=== PATIENT | male | born 1960 | race Caucasian/White ===

== ENCOUNTER 2017-07-13 20:42 | Emergency (ER) | payer MEDICAID ==
[~2017-07-13] VITALS: Ht 177.8 cm; Wt 63.5 kg
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
[2017-07-13 21:30] VITALS: BP 132/86
[2017-07-13 23:30] VITALS: BP 128/79
[2017-07-14 01:30] VITALS: BP 122/77
[2017-07-14 03:30] VITALS: BP 118/74
[2017-07-14 04:36] VITALS: BP 118/74
== END 2017-07-14 04:30 | disposition home or self-care (01) ==
LOC: EDBD 20:42 → EMR 21:22
DX: F10.129 Alcohol abuse with intoxication, unspecified (principal); G89.29 Other chronic pain; M54.9 Dorsalgia, unspecified; Z88.5 Allergy status to narcotic agent
CPT/HCPCS: 99284

== ENCOUNTER 2017-07-24 03:08 | Emergency (ER) | payer MEDICAID ==
[~2017-07-24] VITALS: Ht 167.6 cm; Wt 65.8 kg
[2017-07-24] MEDS ORDERED: PEPCID20 MG ORAL (03:31)
[2017-07-24] MEDS ORDERED: KEPPRA500 M4 ORAL (03:31)
[2017-07-24] MEDS ORDERED: VITAMIN B-1100 MG ORAL (03:31)
[2017-07-24] MEDS ORDERED: HYDRALAZINE HCL25 M1 ORAL (03:31)
[2017-07-24] MEDS ORDERED: FOLIC ACID1 MG ORAL (03:31)
[2017-07-24] MEDS ORDERED: M.V.I. ADULT10 ML IV (03:32)
[2017-07-24] MEDS ORDERED: LORazepam 1mg tab ORAL ONE (03:45)
[2017-07-24] MEDS ORDERED: HYDROCORTISON28.4 G5 TOPIC (04:04)
[2017-07-24] MEDS ORDERED: ATIVAN1 MG ORAL (04:04)
[2017-07-24 04:36] VITALS: BP 134/89
--- NOTE | 2017-07-24 05:37 | Emergency Room Report ---
History of Present Illness General Chief Complaint: General Complaint Source: Patient Present Illness HPI Patient 56-year-old male brought in by self after increased skin rash. Patient recently been discharged from the hospital. He was noted to have itchy rash to his waist area. The patient reports having a prior history of seizure disorder. He states he drinks alcohol heavily but had not been drinking for several days. The patient recently hospitalized at [facility]. Allergies: Coded Allergies: MORPHINE (Verified Allergy, Unknown, 04/09/17) Patient History Past Medical History: see triage record Reviewed Nursing Documentation: PMH: Agreed; PSxH: Agreed Nursing Documentation-PMH Hx Diabetes: Yes Review of Systems All Other Systems: negative except mentioned in HPI Physical Exam Vital Signs Date Time Temp Pulse Resp B/P (MAP) Pulse Ox O2 Delivery O2 Flow Rate FiO2 07/24/17 03:15 97.7 71 18 157/106 97 Room Air 97.7 Sp02 EP Interpretation: reviewed, normal General Appearance: normal inspection, well appearing, no apparent distress, alert, GCS 15 Head: atraumatic ENT: normal ENT inspection, hearing grossly normal, normal voice Neck: normal inspection, full range of motion, supple, no bony tend Respiratory: normal inspection, lungs clear, normal breath sounds, no respiratory distress, no retraction, no wheezing Cardiovascular #1: regular rate, rhythm, no edema Gastrointestinal: normal inspection, normal bowel sounds, non tender, soft, no guarding, no hernia Genitourinary: no CVA tenderness Musculoskeletal: normal inspection, back normal, normal range of motion Neurologic: normal inspection, alert, oriented x3, responsive, pick up worker III-XII nml as tested, speech normal Psychiatric: normal inspection, judgement/insight normal, mood/affect normal Skin: no rash, other - rash to waist, extremities Medical Decision Making Diagnostic Impression: Primary Impression: Alcohol abuse Additional Impression: Rash in adult ER Course Patient presented for skin rash. Differential diagnosis included was not limited to eczema, abscess, scabies, contact dermatitis among others. Patient has a benign exam and does not appear to require any further imaging or laboratory testing at this time. The patient was given oral Ativan. Patient is given prescription for topical medications as well as further Ativan. The patient is advised to follow up with primary care doctor in 1-2 days. Patient is advised to return if any worsening condition or if any changes in status that are concerning. This report is dictated with [employer] party plan dealer software which may occasionally lead to discrepancies related to use of this software. Last Vital Signs Date Time Temp Pulse Resp B/P (MAP) Pulse Ox O2 Delivery O2 Flow Rate FiO2 07/24/17 04:36 134/89 07/24/17 04:36 97.7 18 97 Room Air 97.7 07/24/17 03:15 71 Status: improved Disposition: HOME, SELF-CARE Condition: Stable Scripts Lorazepam* (ATIVAN*) 1 Mg Tablet 1 MG ORAL THREE TIMES A DAY, #10 TAB Prov: Josh Radford 07/24/17 Hydrocortisone 1% cream (Hydrocortisone 1% cream) Y Cr 28.4 GM TOPIC DAILY, #30 GM Prov: Josh Radford 07/24/17 Referrals: [facility],REFERRING (PCP) Patient Instructions: Alcohol Abuse and Nutrition, Pruritus Josh Radford Jul 24, 2017 05:37
== END 2017-07-24 04:37 | disposition home or self-care (01) ==
LOC: EMR 03:37
DX: F10.10 Alcohol abuse, uncomplicated (principal); R21 Rash and other nonspecific skin eruption; E11.9 Type 2 diabetes mellitus without complications; Z88.5 Allergy status to narcotic agent
CPT/HCPCS: 99284

== ENCOUNTER 2017-08-11 19:13 | Emergency (ER) | payer MEDICAID ==
[~2017-08-11] VITALS: Ht 167.6 cm; Wt 72.6 kg
[~2017-08-11 19:13] MED LIST: ATIVAN1 MG ORAL; FOLIC ACID1 MG ORAL; HYDRALAZINE HCL25 M1 ORAL; HYDROCORTISON28.4 G5 TOPIC; KEPPRA500 M4 ORAL; M.V.I. ADULT10 ML IV; PEPCID20 MG ORAL; VITAMIN B-1100 MG ORAL
[2017-08-11 19:18] VITALS: BP 121/85
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
[2017-08-11 21:02] VITALS: BP 121/85
== END 2017-08-11 21:10 | disposition home or self-care (01) ==
LOC: EDBD 19:13 → EMR 19:45
DX: F10.10 Alcohol abuse, uncomplicated (principal); E11.9 Type 2 diabetes mellitus without complications
CPT/HCPCS: 99282

== ENCOUNTER 2017-08-26 14:39 | Emergency (ER) | payer MEDICAID ==
[~2017-08-26] VITALS: Ht 172.7 cm; Wt 71.7 kg
--- NOTE | 2017-08-26 15:13 | Emergency Room Report ---
History of Present Illness General Chief Complaint: General Complaint Source: Patient Present Illness HPI 56-year-old male presents to the emergency department complaining of pain in the left knee times almost 3 weeks. Patient reports status post musculoskeletal injury which she sustained fractures of the leg and several lacerations. He rates his pain as 5 out of 10 in severity. Denies fevers or chills. Patient reports that he's been drinking alcohol because that is the only way to deal with the pain. He denies new trauma or fall. Patient reports it is difficult for him to walk or take care of himself due to having his entire left leg immobilized. Denies numbness tingling or loss of sensation to the affected extremity. Denies CP, Palpitations, LOC, AMS, dizziness, Changes in Vision, claudication, SOB, paresthesias, or a sudden severe headache. Allergies: Coded Allergies: MORPHINE (Verified Allergy, Unknown, 04/09/17) Patient History Past Medical History: see triage record Past Surgical History: none Pertinent Family History: none Social History: Reports: alcohol use, drug use - heroin Immunizations: UTD Reviewed Nursing Documentation: PMH: Agreed; PSxH: Agreed Nursing Documentation-PMH Hx Diabetes: Yes Review of Systems All Other Systems: negative except mentioned in HPI Physical Exam Vital Signs Date Time Temp Pulse Resp B/P (MAP) Pulse Ox O2 Delivery O2 Flow Rate FiO2 08/26/17 14:37 97.8 80 16 116/60 100 Room Air 97.9 Sp02 EP Interpretation: reviewed, normal General Appearance: no apparent distress, alert, GCS 15, non-toxic, thin, other - Disheveled Head: normocephalic, atraumatic Eyes: bilateral eye normal inspection, bilateral eye PERRL ENT: hearing grossly normal, normal voice Neck: full range of motion, no bony tend Respiratory: chest non-tender, lungs clear, normal breath sounds, no wheezing, speaking full sentences Cardiovascular #1: regular rate, rhythm, normal capillary refill, other Gastrointestinal: non tender, soft Musculoskeletal: back normal, gait/station normal, normal range of motion, tender - TTP to the anterior left knee, mild swelling noted, two lacerations that have been previously closed by laurent, no d/c, increased temperature to palpation. Neurologic: alert, oriented x3, responsive, motor strength/tone normal, sensory intact, speech normal, grossly normal Psychiatric: judgement/insight normal Skin: normal color, no rash, warm/dry Medical Decision Making PA Attestation Dr. sanon is my supervising Physician whom patient management has been discussed with. Diagnostic Impression: Primary Impression: Weakness of extremity Additional Impressions: Inability to ambulate due to knee Failure to thrive in adult ER Course 56-year-old male presents to the emergency department complaining of pain in the left knee times almost 3 weeks. Patient reports status post musculoskeletal injury which she sustained fractures of the leg and several lacerations. He rates his pain as 5 out of 10 in severity. Denies fevers or chills. Patient reports that he's been drinking alcohol because that is the only way to deal with the pain. He denies new trauma or fall. Patient reports it is difficult for him to walk or take care of himself due to having his entire left leg immobilized. Denies numbness tingling or loss of sensation to the affected extremity. Denies CP, Palpitations, LOC, AMS, dizziness, Changes in Vision, claudication, SOB, paresthesias, or a sudden severe headache. Ddx considered but are not limited to Cellulitis, Compromised circulation, Septic Joint, Inability to care for himself, DVT, psychiatric episode just to name a few. Vital signs: are WNL, pt. is afebrile H&PE are most consistent with Healing lacerations of the left knee, and immobilized left leg fracture- no evidence of compartment syndrome, decreased circulation or DVT. No evidence of acute infection. ORDERS: -CBC: some anemia -CMP: unremarkable -Serum ETOH: pending -Salicylate and Acetaminophen levels : pending -UDS: positive for Benzo's and THC. DISPOSITION: at this time pt. will be admitted and transferred to [facility] for Unsteady Gait, inability to care for himself and weakness. Dr. Mix agreed to admit this patient and continue patient care management. Labs Test 08/26/17 20:30 White Blood Count 5.1 K/UL (4.8-10.8) Red Blood Count 4.12 M/UL (4.70-6.10) Hemoglobin 12.0 G/DL (14.2-18.0) Hematocrit 37.6 % (42.0-52.0) Mean Corpuscular Volume 91 FL (80-99) Mean Corpuscular Hemoglobin 29.2 PG (27.0-31.0) Mean Corpuscular Hemoglobin Concent 32.0 G/DL (32.0-36.0) Red Cell Distribution Width 16.2 % (11.6-14.8) Platelet Count 117 K/UL (150-450) Mean Platelet Volume 11.2 FL (6.5-10.1) Neutrophils (%) (Auto) 45.4 % (45.0-75.0) Lymphocytes (%) (Auto) 37.5 % (20.0-45.0) Monocytes (%) (Auto) 10.1 % (1.0-10.0) Eosinophils (%) (Auto) 5.1 % (0.0-3.0) Basophils (%) (Auto) 1.9 % (0.0-2.0) Last Vital Signs Date Time Temp Pulse Resp B/P (MAP) Pulse Ox O2 Delivery O2 Flow Rate FiO2 08/26/17 14:37 97.8 80 16 116/60 100 Room Air 97.9 Disposition: ADMITTED INPATIENT Condition: Serious Elda Quiñonez August 26, 2017 15:13
[2017-08-26 16:26] VITALS: BP 116/60
[2017-08-26 19:55] VITALS: BP 130/76
[2017-08-26 20:51] LABS: BASOPHILS % (AUTO) 1.9 % (0.0-2.0); EOSINOPHILS % (AUTO) 5.1 % (0.0-3.0); HEMATOCRIT 37.6 % (42.0-52.0); LYMPHOCYTES % (AUTO) 37.5 % (20.0-45.0); MEAN CORPUSCULAR VOLUME 91 FL (80-99); MONOCYTES % (AUTO) 10.1 % (1.0-10.0); NEUTROPHILS % (AUTO) 45.4 % (45.0-75.0); PLATELET COUNT 117 K/UL (150-450); RED BLOOD COUNT 4.12 M/UL (4.70-6.10); RED CELL DISTRIBUTION WIDTH 16.2 % (11.6-14.8); WHITE BLOOD COUNT 5.1 K/UL (4.8-10.8)
[2017-08-26 21:35] LABS: ANION GAP 9 mmol/L (5-15); BLOOD UREA NITROGEN 5 mg/dL (7-18); CALCIUM 8.3 MG/DL (8.5-10.1); CARBON DIOXIDE 27 MMOL/L (21-32); CHLORIDE 104 MMOL/L (98-107); CREATININE 0.7 MG/DL (0.55-1.30); POTASSIUM 3.8 MMOL/L (3.5-5.1); SODIUM 140 MMOL/L (136-145)
[2017-08-26 21:39] LABS: ALANINE AMINOTRANSFERASE 61 U/L (12-78); ALBUMIN 2.9 G/DL (3.4-5.0); ALBUMIN/GLOBULIN RATIO 0.6 (1.0-2.7); ALKALINE PHOSPHATASE 115 U/L (46-116); ASPARTATE AMINO TRANSFERASE 60 U/L (15-37); BILIRUBIN,TOTAL 0.5 MG/DL (0.2-1.0)
[2017-08-26 21:45] VITALS: BP 147/83
[2017-08-26 21:46] VITALS: BP 130/76
== END 2017-08-26 21:47 | disposition other institution (70) ==
LOC: EDBD 14:39 → EMR 15:08
DX: R53.1 Weakness (principal); M25.562 Pain in left knee; R62.7 Adult failure to thrive; E11.9 Type 2 diabetes mellitus without complications; Z88.5 Allergy status to narcotic agent
CPT/HCPCS: 36415; 80053; 80307; 80329; 82962; 85025; 99285

== ENCOUNTER 2017-09-06 00:24 | Emergency (ER) | payer MEDICAID ==
[~2017-09-06] VITALS: Ht 167.6 cm; Wt 59.0 kg
[2017-09-06 00:24] VITALS: BP 135/94
[2017-09-06 04:37] VITALS: BP 96/57
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
[2017-09-06 11:27] VITALS: BP 112/67
[2017-09-06 11:50] VITALS: BP 112/67
== END 2017-09-06 11:56 | disposition home or self-care (01) ==
LOC: EDBD 00:24 → EMR 00:40
DX: F10.129 Alcohol abuse with intoxication, unspecified (principal); M79.605 Pain in left leg; Z48.02 Encounter for removal of sutures; E11.9 Type 2 diabetes mellitus without complications; B20 Human immunodeficiency virus [HIV] disease; Z86.19 Personal history of other infectious and parasitic diseases; Z88.6 Allergy status to analgesic agent
CPT/HCPCS: 82962; 99283

== ENCOUNTER 2017-10-25 20:08 | Emergency (ER) | payer MEDICAID ==
[~2017-10-25] VITALS: Ht 167.6 cm; Wt 72.6 kg
[2017-10-25 20:10] VITALS: BP 127/84
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
[2017-10-25] MEDS ORDERED: NEXAFED30 MG ORAL (22:18)
[2017-10-25] MEDS ORDERED: TYLENOL EXTRA500 MG ORAL (22:18)
[2017-10-25 22:40] VITALS: BP 123/84
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
== END 2017-10-25 22:40 | disposition home or self-care (01) ==
LOC: EDBD 20:08 → EMR 20:30
DX: S02.2XXA Fracture of nasal bones, initial encounter for closed fracture (principal); Y04.2XXA Assault by strike against or bumped into by another person, initial encounter; Y92.9 Unspecified place or not applicable; I10 Essential (primary) hypertension; E11.9 Type 2 diabetes mellitus without complications; Z88.5 Allergy status to narcotic agent; J32.0 Chronic maxillary sinusitis; G93.89 Other specified disorders of brain
CPT/HCPCS: 70450; 70486; 99284

== ENCOUNTER 2018-04-11 14:08 | Inpatient (IN) | payer MEDICAID ==
[~2018-04-11] VITALS: Ht 172.7 cm; Wt 58.6 kg
[~2018-04-11 14:08] MED LIST changes: +NEXAFED30 MG ORAL; +TYLENOL EXTRA500 MG ORAL; +UNOBMED
--- NOTE | 2018-04-11 14:10 | NUR ---
ED Nurse Note: Pt BIBA due to seizures. Pt brought in very agitated and restless. While attaching pt to monitor, pt had an active seizure that lasted for 30 secs. Pt is on 5L of oxygen via mask due to desat. Pt unable to state his name.
[2018-04-11 14:11] VITALS: BP 184/116
--- NOTE | 2018-04-11 14:15 | NUR ---
ED Nurse Note: Pt noted to smell like alcohol and blood coming out of mouth after seizure.
[2018-04-11] MEDS ORDERED: LORazepam Inj 2mg/ml 1ml IV ONE (14:45)
--- NOTE | 2018-04-11 15:07 | Emergency Room Report ---
History of Present Illness General Chief Complaint: Seizure Source: Patient, EMS Present Illness HPI Patient is a 57-year-old male brought in by EMS for possible seizure activity. Patient was noted to have unknown past medical history. History is markedly limited by patient's mental status. Allergies: Coded Allergies: MORPHINE (Verified Allergy, Unknown, 04/09/17) Patient History Past Medical History: see triage record Reviewed Nursing Documentation: PMH: Agreed; PSxH: Agreed Nursing Documentation-PMH Past Medical History: Deferred Review of Systems All Other Systems: limited - by poor historian Physical Exam Vital Signs Date Time Temp Pulse Resp B/P (MAP) Pulse Ox O2 Delivery O2 Flow Rate FiO2 04/11/18 13:59 115 04/11/18 14:11 24 Simple Mask 5.0 100 04/11/18 14:11 98.0 184/116 100 General Appearance: alert, mild distress, Chronically Ill, Postictal ENT: hearing grossly normal Neck: limited range of motion Respiratory: wheezing Cardiovascular #1: tachycardia Gastrointestinal: normal bowel sounds, non tender, soft Musculoskeletal: swelling Neurologic: alert, other - confused Psychiatric: anxious - tremuloous Skin: abrasions - to extremities Medical Decision Making Diagnostic Impression: Primary Impression: Seizure Additional Impressions: Metabolic acidosis Tachycardia ER Course Patient presented for seizure. Differential diagnosis includes is not limited to alcohol withdrawal, hypoglycemia, substance abuse, intracranial hemorrhage among others. Because of complexity of patient's case laboratory testing and imaging studies were ordered. Patient was noted to have some evidence of alcohol withdrawal. Patient was given IV Ativan. He had some improvement in his tachycardia. He was given IV hydration. Patient gradual improvement in his mental status. X-ray read by radiology showed rotation and some pleural plaquing with old rib fracture deformities there is no definite infiltrate noted. Dr. Josh Sanderson was contacted for inpatient management due to panel physician Labs Test 04/11/18 14:45 White Blood Count 11.6 K/UL (4.8-10.8) Red Blood Count 4.00 M/UL (4.70-6.10) Hemoglobin 12.7 G/DL (14.2-18.0) Hematocrit 39.8 % (42.0-52.0) Mean Corpuscular Volume 99 FL (80-99) Mean Corpuscular Hemoglobin 31.8 PG (27.0-31.0) Mean Corpuscular Hemoglobin Concent 32.0 G/DL (32.0-36.0) Red Cell Distribution Width 12.2 % (11.6-14.8) Platelet Count 313 K/UL (150-450) Mean Platelet Volume 6.9 FL (6.5-10.1) Neutrophils (%) (Auto) 46.3 % (45.0-75.0) Lymphocytes (%) (Auto) 39.4 % (20.0-45.0) Monocytes (%) (Auto) 13.1 % (1.0-10.0) Eosinophils (%) (Auto) 0.1 % (0.0-3.0) Basophils (%) (Auto) 1.2 % (0.0-2.0) Urine Color [place] Urine Appearance Slightly cloudy Urine pH 6 (4.5-8.0) Urine Specific [place] 1.015 (1.005-1.035) Urine Protein 2+ (NEGATIVE) Urine Glucose (UA) Negative (NEGATIVE) Urine Ketones 1+ (NEGATIVE) Urine Blood Negative (NEGATIVE) Urine Nitrite Negative (NEGATIVE) Urine Bilirubin Negative (NEGATIVE) Urine Ictotest Negative (NEGATIVE) Urine Urobilinogen 4 MG/DL (0.0-1.0) Urine Leukocyte Esterase 1+ (NEGATIVE) Urine RBC 0 /HPF (0 - 0) Urine WBC 5-10 /HPF (0 - 0) Urine Squamous Epithelial Cells Occasional /LPF Urine Bacteria Few /HPF (NONE) Urine Mucus Moderate /LPF (NONE/OCC) Sodium Level 134 MMOL/L (136-145) Potassium Level 4.3 MMOL/L (3.5-5.1) Chloride Level 97 MMOL/L (98-107) Carbon Dioxide Level 17 MMOL/L (21-32) Anion Gap 20 mmol/L (5-15) Blood Urea Nitrogen 12 mg/dL (7-18) Creatinine 1.0 MG/DL (0.55-1.30) Estimat Glomerular Filtration Rate > 60 mL/min (>60) Glucose Level 120 MG/DL (74-106) Calcium Level 8.4 MG/DL (8.5-10.1) Total Bilirubin 0.7 MG/DL (0.2-1.0) Aspartate Amino Transf (AST/SGOT) 138 U/L (15-37) Alanine Aminotransferase (ALT/SGPT) 68 U/L (12-78) Alkaline Phosphatase 153 U/L (46-116) Troponin I 0.008 ng/mL (0.000-0.056) Total Protein 8.8 G/DL (6.4-8.2) Albumin 2.3 G/DL (3.4-5.0) Globulin 6.5 g/dL Albumin/Globulin Ratio 0.4 (1.0-2.7) Urine Opiates Screen Negative (NEGATIVE) Urine Barbiturates Screen Negative (NEGATIVE) Phenytoin (Dilantin) Level < 0.5 ug/mL (10-20) Phencyclidine (PCP) Screen Negative (NEGATIVE) Urine Amphetamines Screen Negative (NEGATIVE) Urine Benzodiazepines Screen Negative (NEGATIVE) Urine Cocaine Screen Negative (NEGATIVE) Urine Marijuana (THC) Screen Positive (NEGATIVE) Serum Alcohol 31 mg/dL EKG Diagnostic Results Rate: tachycardiac Rhythm: NSR ST Segments: no acute changes Last Vital Signs Date Time Temp Pulse Resp B/P (MAP) Pulse Ox O2 Delivery O2 Flow Rate FiO2 04/11/18 14:11 98.0 94 24 184/116 100 Simple Mask 5.0 100 Status: improved Disposition: ADMITTED INPATIENT Condition: Josh Lundberg MD Apr 11, 2018 15:07
--- NOTE | 2018-04-11 15:11 | NUR ---
ED Nurse Note: Xray at the bedside.
[2018-04-11 15:24] LABS: BASOPHILS % (AUTO) 1.2 % (0.0-2.0); EOSINOPHILS % (AUTO) 0.1 % (0.0-3.0); HEMATOCRIT 39.8 % (42.0-52.0); HEMOGLOBIN 12.7 G/DL (14.2-18.0); LYMPHOCYTES % (AUTO) 39.4 % (20.0-45.0); MEAN CORPUSCULAR VOLUME 99 FL (80-99); MONOCYTES % (AUTO) 13.1 % (1.0-10.0); NEUTROPHILS % (AUTO) 46.3 % (45.0-75.0); PLATELET COUNT 313 K/UL (150-450); RED CELL DISTRIBUTION WIDTH 12.2 % (11.6-14.8); WHITE BLOOD COUNT 11.6 K/UL (4.8-10.8)
[2018-04-11 15:30] LABS: APPEARANCE,URINE SLIGHTLY CLOUDY; BILIRUBIN, URINE NEGATIVE (NEGATIVE); COLOR,URINE AMBER; GLUCOSE, URINE (UA) NEGATIVE (NEGATIVE); KETONES,URINE 1+ (NEGATIVE); LEUKOCYTE ESTERASE ,URINE 1+ (NEGATIVE); NITRITE,URINE NEGATIVE (NEGATIVE); PH,URINE 6 (4.5-8.0); PROTEIN,URINE 2+ (NEGATIVE); UROBILINOGEN,URINE 4 MG/DL (0.0-1.0)
[2018-04-11 15:41] LABS: ANION GAP 20 mmol/L (5-15); BLOOD UREA NITROGEN 12 mg/dL (7-18); CALCIUM 8.4 MG/DL (8.5-10.1); CARBON DIOXIDE 17 MMOL/L (21-32); CHLORIDE 97 MMOL/L (98-107); POTASSIUM 4.3 MMOL/L (3.5-5.1); SODIUM 134 MMOL/L (136-145)
[2018-04-11 15:42] LABS: ALANINE AMINOTRANSFERASE 68 U/L (12-78); ALBUMIN 2.3 G/DL (3.4-5.0); ALBUMIN/GLOBULIN RATIO 0.4 (1.0-2.7); ALKALINE PHOSPHATASE 153 U/L (46-116); ASPARTATE AMINO TRANSFERASE 138 U/L (15-37); BILIRUBIN,TOTAL 0.7 MG/DL (0.2-1.0)
--- NOTE | 2018-04-11 17:15 | Diagnostic Imaging Report ---
Indication: Shortness of breath Technique: One view of the chest Comparison: none Findings: Patient is rotated to the right. There is some pleural plaquing on the right. Old healed rib fracture deformities are seen on the left. No definite acute infiltrates, effusions, or congestion. Heart size is normal. Aorta is tortuous. There is evidence of prior upper lumbar vertebral augmentation procedure Impression: No acute process. Findings as noted
[2018-04-11 18:06] VITALS: BP 110/84
--- NOTE | 2018-04-11 19:20 | NUR ---
HAND-OFF: Report given to JOSE MIGUEL Bloom.
--- NOTE | 2018-04-11 19:30 | NUR ---
ED Nurse Note: Patient sleeping no s/s of distress.
[2018-04-11 20:00] VITALS: BP 128/92
--- NOTE | 2018-04-11 20:57 | NUR ---
ED Nurse Note: Patient has been cleared for admission by Dr. tompkins. Patient refusd to sign belongings sheet and D/c one of his IV's in the right hand. Patient is sleeping and expressed that he wanted to be left alone. belongings sheet signed by second RN.
--- NOTE | 2018-04-11 21:30 | NUR ---
NURSE NOTES: Received patient from Merle GILLESPIE via [facility]. Patient is awake ao x3-4. Breathing even and non labored on room air. Patient is restless, uncooperative with care and combative. MD made aware. Patient keeps removing the monitor and storage bin tender x3. Seizure precaution observed. Side rails padded. Bed in lowest position. Call light within reach. Will continue to monitor.
[2018-04-11] MEDS ORDERED: LORazepam 1mg tab ORAL PRN (23:00)
[2018-04-11] MEDS ORDERED: Folic Acid 1 MG, Magnesium Sulfate 2,000 MG, Multivitamin - 12 Injection 10 ML, Thiamin... IV SCH ×5 (23:00)
[2018-04-12] VITALS: BP 140/98
--- NOTE | 2018-04-12 03:58 | NUR ---
NURSE NOTES: Patient refused IV access and cardiac monitoring. Explained and discussed the purpose, patient still refused. Patient is alert and oriented x 3-4. Patient remained uncooperative with care.
[2018-04-12 07:40] LABS: BASOPHILS % (AUTO) 1.4 % (0.0-2.0); EOSINOPHILS % (AUTO) 0.9 % (0.0-3.0); HEMATOCRIT 34.1 % (42.0-52.0); HEMOGLOBIN 11.4 G/DL (14.2-18.0); MEAN CORPUSCULAR VOLUME 95 FL (80-99); MONOCYTES % (AUTO) 9.4 % (1.0-10.0); NEUTROPHILS % (AUTO) 58.4 % (45.0-75.0); PLATELET COUNT 261 K/UL (150-450); RED CELL DISTRIBUTION WIDTH 11.8 % (11.6-14.8); WHITE BLOOD COUNT 4.2 K/UL (4.8-10.8)
--- NOTE | 2018-04-12 07:50 | NUR ---
NURSE NOTES: received patient report from anne persaud. patient is on bed awake. no acute distress noted. denies pain. patient verbalized " im ready to go home. bed is low and locked, will continue to monitor.
--- NOTE | 2018-04-12 07:59 | NUR ---
HAND-OFF: Report given to JOSE MIGUEL De Leon.
[2018-04-12 08:00] VITALS: BP 167/92
[2018-04-12 08:03] LABS: ANION GAP 10 mmol/L (5-15); BLOOD UREA NITROGEN 4 mg/dL (7-18); CALCIUM 7.7 MG/DL (8.5-10.1); CARBON DIOXIDE 24 MMOL/L (21-32); CHLORIDE 104 MMOL/L (98-107); CREATININE 0.6 MG/DL (0.55-1.30); POTASSIUM 3.3 MMOL/L (3.5-5.1); SODIUM 138 MMOL/L (136-145)
[2018-04-12] MEDS ORDERED: Thiamine 100mg in D5W 55ml IVPB SCH (10:00)
[2018-04-12] MEDS ORDERED: Folic Acid 1 MG, Magnesium Sulfate 2,000 MG, Multivitamin - 12 Injection 10 ML in NS 10... IV SCH (11:00)
--- NOTE | 2018-04-12 11:48 | NUR ---
NURSE NOTES: dr diana made aware that patient has no IV line for now. awaitng callback and new orders as of this time.
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
--- NOTE | 2018-04-12 14:30 | History and Physical Report ---
HISTORY: The patient is a 57-year-old male who came to the emergency room for having alcohol withdrawal seizures. PAST MEDICAL HISTORY: Lumbar pars fracture, alcohol abuse, epileptic seizures, and homeless. MEDICATIONS: See the list. Hydralazine, Keppra, lorazepam, pseudoephedrine, thiamine. PHYSICAL EXAMINATION: GENERAL: This is an elderly male who is not cooperative and sitting in the bed, lying in bed, and otherwise comfortable. VITAL SIGNS: Blood pressure 143/86, pulse 112, respiration is 19, and temperature 98.5. SKIN: Good skin turgor. HEENT: NAD. CHEST: Bilaterally clear. CARDIOVASCULAR: Regular rhythm. No gallop. No murmur. ABDOMEN: Soft. Positive bowel sounds. EXTREMITIES: CCE. NEUROLOGICAL: No focal deficit. GENITOURINARY: Deferred. LABORATORY DATA: White counts are 12,000, hemoglobin 13, hematocrit 39, and platelets are 313,000. Chemistry panel, sodium 134, potassium 4.3, BUN 12, creatinine 1, and glucose 120. Urine has 1+ ketones and leukocyte esterase 1+. His toxicology screen is positive for marijuana and serum alcohol 31. ASSESSMENT: 1. Alcohol intoxication. 2. Dehydration. 3. Substance abuse. PLAN: We will currently add banana bag at 150 mL/hour, regular diet, Ativan 1 mg q.6 h., and p.r.n. Zofran. Consider psych consult. Recommended to quit alcohol. Manfred Sanderson M.D. DR: KIMBERLI JOB#: [id number] CC:
--- NOTE | 2018-04-12 14:39 | Cardiology Report ---
APPROVED REPORT EKG Measurement Heart [id number] Sinus tachycardia Septal infarct, age undetermined Abnormal ECG
--- NOTE | 2018-04-12 15:43 | NUR ---
CASE MANAGEMENT: REVIEW 57/M BIBA FROM HOME CC: SEIZURE SI: SEIZURE . ALCOHOL WITHDRAWAL T 98.0 HR 118 RR 26 BP 184/116 SAT 93% SIMPLE MASK 100 WBC 11.6 NA 134 AST 138 ALK PHOS 153 TOX: PHENYTOIN <0.5 THC + SERUM ALCOHOL 31 IS: ATIVAN IV X1 NS IVF BOLUS X1 INTERQUAL CRITERIA MET: PATIENT ADMITTED TO TELEMETRY UNIT 04/11/2018 DCP: PATIENT IS FROM HOME CASE MANAGEMENT: REVIEW SI: SEIZURE . ALCOHOL WITHDRAWAL T 98.7 HR 112 RR 20 BP 167/92 SAT 95% ROOM AIR WBC 4.2 K 3.3 IS: VALIUM 10MG Q2HR PRN TPN IV Q24HR B1 IV Q24HR ZOFRAN PO Q4HR PRN TELEMETRY UNIT STATUS DCP: PATIENT IS FROM HOME
--- NOTE | 2018-04-12 15:52 | NUR ---
NURSE NOTES: patient is non compliance, resistive to care. dr diana made aware that no IV line.dr diana stated "ok". dr aponte made aware as well.patient refused meds, refused vital signs checked, refused morning care. will continue to monitor.
--- NOTE | 2018-04-12 16:01 | NUR ---
NURSE NOTES: patient refused mrsa, vre, cre swabs. will attempt again later.will continue to monitor.
--- NOTE | 2018-04-12 17:09 | NUR ---
Social Service Note Patient noted to be chronically homeless. Patient with 6 ER visits at [facility] for alcohol related issues. Patient requested for SW to come back at a later time. Unable to assess services at this time. SW discussed with charge nurse. PT eval ordered and patient is pending transfer to med surg. Will follow up in AM.
--- NOTE | 2018-04-12 19:39 | NUR ---
NURSE NOTES: Report received from JOSE MIGUEL De Leon. Pt is lying comfortably in semi-fowlers. A+Ox3, denies pain and SOB. Pt shows no signs of distress. No IV access; MD aware. Respirations are even and unlabored on room air. Bed is at lowest position, brakes engaged, siderails x2, bed alarm on, and call light within reach. Pt is in stable condition at this time, but refusing care; will continue to monitor.
[2018-04-12 20:00] VITALS: BP 141/92
--- NOTE | 2018-04-12 21:50 | NUR ---
NURSE NOTES: Patient transferred to [facility]. All belongings accounted for. Patient is awake, alert and verbally responsive. Skin is warm. Respiration is even and unlabored. NO complaint of pain or discomfort noted. NO iv site. Call light is at bedside. Will continue plan of care.
--- NOTE | 2018-04-12 21:51 | NUR ---
HAND-OFF: Pt transferred safely to . Pt is in stable condition. Report given to JOSE MIGUEL Betancourt. Plan of care endorsed.
--- NOTE | 2018-04-12 22:00 | NUR ---
NURSE NOTES: Patient in bed, awake, alert. Refused to have pictures taken and IV insertion, informed of the risks and benefits, still refused.
[2018-04-13] VITALS: BP 153/79
--- NOTE | 2018-04-13 07:23 | NUR ---
HAND-OFF: Report given to JOSE MIGUEL Warren.
--- NOTE | 2018-04-13 07:40 | NUR ---
NURSE NOTES: Received report from JOSE MIGUEL Betancourt. Pt is in the bed, sleeping. On the RA. No s.s of respiratory distress or discomfort noted. Bed is in the lowest position. Call light is within the reach Addendum: 04/13/18 at 0954 by Nichol Lan RN Dr Sanderson informed about the Pt's K level 3.3. No new orders received
[2018-04-13 08:00] VITALS: BP 138/90
--- NOTE | 2018-04-13 08:14 | Progress Note ---
DATE: 04/12/2018 SUBJECTIVE: This is a 57-year-old male with poor compliance, has been not taking medication. He wants to go home. OBJECTIVE: VITAL SIGNS: Blood pressure 167/92, asymptomatic, pulse 78, and temperature 98.2. CHEST: Bilaterally clear. CARDIOVASCULAR: Regular rhythm. ABDOMEN: Soft. EXTREMITIES: No CCE. NEUROLOGIC: The patient has generalized weakness. ASSESSMENT: 1. Alcohol abuse. 2. Depression. 3. Seizures. PLAN: 1. We will currently continue current treatment and discharge plan. 2. Transfer to Med/Surg. Manfred Sanderson M.D. DR: LIAT JOB#: [id number] CC:
--- NOTE | 2018-04-13 09:07 | NUR ---
INSURANCE ALL CLINICALS AND REVIEWS HAVE BEEN FAXED TO: [facility] BETTYM:MARIZA P:[phone] X [phone] F:[phone]
--- NOTE | 2018-04-13 09:36 | NUR ---
Social Service Note BERNADETTE met with patient to assess for homelessness. Patient was alert, oriented and verbally responsive. Patient states he has been homeless for over 5 years. Patient contributes his homelessness to his alcoholism. Patient states he has no desire to stop drinking. Patient stated he had short periods of sobriety when court mandated treatment or while incarcerated. Patient denies being on probation or parole. SW addressed [facility] for evaluation. Patient stated he has no intention on going, so there was no point in providing him the resource. Patient states he is aware of the effects of continued alcohol use. Patient states he doesn't have a source of income and doesn't receive GR/Food stamps. Patient states he has manage in this state for years and is fine with this current situation. Patient states he doesn't have a particular place where he sleeps at night. Patient states he typically sleeps next to liquor stores. Patient declined assistance in completing a [facility] referral form for bridge/interim housing. Patient denies having an emergency slot machine key person or next of kin to contact. BERNADETTE arranged a follow up appointment with patient's PCP Dr. Familia Smith, , [address] [facility] [address] for April 14 at 330pm. Patient was agreeable with follow up appointment. BERNADETTE provided patient pants and a sweater. TAP card will be provided for transportation to patient's preferred location upon discharge. BERNADETTE discussed with primary nurse and charge nurse.
--- NOTE | 2018-04-13 09:41 | NUR ---
P.T Note: P.T evaluation complete. Pt is functioning at baseline. Skilled P.T is not recommended at this time. Thank you for this referral. Addendum: 04/13/18 at 0941 by TONY FERGUSON PT Amended: Links added.
[2018-04-13] MEDS ORDERED: Thiamine HCl 100 MG in D5W 55 ML IVPB SCH (10:00)
[2018-04-13] MEDS ORDERED: Folic Acid 1 MG, Magnesium Sulfate 2,000 MG, Multivitamin - 12 Injection 10 ML in NS 10... IV SCH (11:00)
--- NOTE | 2018-04-13 13:37 | NUR ---
NURSE NOTES: Pt is discharged in a stable condition. Per Dr Sanderson, Pt does not require any medication to be prescribed. Advised patient to follow up with the Dr Smith for the appointment tomorrow 04/14/18 @ 7417. Pt verbalized understanding. Provided Pt with the tap card and advised on how to use it. Verbalized understanding. Belongings reviewed and accounted for. Pt refused to sign belongings list. Discharge package with the discharge instructions are given to the patient. ID band removed. Pt is stable upon the discharge.
--- NOTE | 2018-04-13 22:46 | General Progress Note ---
Assessment/Plan Problem List: (1) Alcohol dependence ICD Codes: F10.20 - Alcohol dependence, uncomplicated SNOMED: 62330184 (2) Acute alcoholic intoxication ICD Codes: F10.929 - Alcohol use, unspecified with intoxication, unspecified SNOMED: [id number] Status: unchanged Assessment/Plan cont folic acid cont thiamine start prozac valium prn CIWA protocol Subjective Neurologic/Psychiatric: Reports: anxiety, depressed, emotional problems Allergies: Coded Allergies: MORPHINE (Verified Allergy, Unknown, 04/09/17) Objective Last 24 Hour Vital Signs Date Time Temp Pulse Resp B/P (MAP) Pulse Ox O2 Delivery O2 Flow Rate FiO2 04/13/18 09:00 Room Air 04/13/18 08:00 97.9 95 20 138/90 (106) 99 04/13/18 00:00 98.9 102 19 153/79 (103) 97 Intake and Output 04/12/18 04/13/18 19:00 07:00 Intake Total 600 ml 240 ml Balance 600 ml 240 ml Intake Oral 240 ml 240 ml Other 360 ml # Voids 5 1 # Bowel Movements 3 Height (Feet): 5 Height (Inches): 8.00 Weight (Pounds): 129 General Appearance: no apparent distress, alert Neurologic: depressed affect Boyd Hartmann MD Apr 13, 2018 22:46
--- NOTE | 2018-04-14 08:14 | Discharge Summary ---
This is a young 57 years old male came with alcohol intoxication and seizure. The patient has been poor compliance, has been refusing all the medications except . He is homeless. PHYSICAL EXAMINATION: GENERAL: The patient looks comfortable in the bed. HOSPITAL COURSE: The patient was otherwise unremarkable. DISCHARGE DIAGNOSES: 1. Alcohol intoxication. 2. Delirium tremens. 3. Substance abuse. DIET: Regular diet. ACTIVITY: As tolerated. DISCHARGE MEDICATIONS: None. Manfred Sanderson M.D. DR: Kely JOB#: [id number] CC:
== END 2018-04-13 13:54 | disposition home or self-care (01) | DRG 775 ==
LOC: MERGE 14:08 → EDBD 14:08 → EMR 16:30 → 2E 20:16 → EDBEDREQ 20:33 → 4E 04-12 23:22
DX: F10.231 Alcohol dependence with withdrawal delirium (principal); F19.10 Other psychoactive substance abuse, uncomplicated; Z59.0 Homelessness; Z88.6 Allergy status to analgesic agent; Z91.14 Patient's other noncompliance with medication regimen; G40.909 Epilepsy, unspecified, not intractable, without status epilepticus
CPT/HCPCS: 36415; 71045; 80048; 80053; 80185; 80307; 80329; 81003; 82962; 84484; 85025; 93005; 96361; 96374; 99285; J8499

== ENCOUNTER 2018-06-25 09:16 | Emergency (ER) | payer MEDICAID ==
[~2018-06-25] VITALS: Ht 177.8 cm; Wt 79.4 kg
[2018-06-25 09:20] VITALS: BP 147/80
--- NOTE | 2018-06-25 09:20 | NUR ---
ED Nurse Note: brought in by [address] due to seizure x1 hour. Witnessed by business system consultant, lasted for about 1 min. Pt presents with small laceration on left hand and c/o pain on left shoulder. BS 77 by EMS. BS of 118 at the bedside. Pt is A/Ox2. Seizure precaution applied. Addendum: 06/25/18 at 1720 by [email or web address] ED Nurse Note: telephone report given to JOSE MIGUEL [facility], report given to JOE Landry. Pt will be transferring to #[id number]. All belongings given to EMT. A/Ox3. No s/s of distress.
--- NOTE | 2018-06-25 09:25 | NUR ---
ED Nurse Note: As RN obtaining IV access, pt started having seizure at 0922. Oxygen was already applied, bleeding from pt's mouth noted, suctioned, positioned pt's head on the left. Seizure lasted about 40secs, ERMD made aware. Ativan given by JOSE MIGUEL Keller. Pt is now sleeping in [facility]. All blood specimens sent down to the lab. Seizure medications given. No s/s of distress at this time. Will continue to monitor.
[2018-06-25] MEDS ORDERED: levETIRAcetam 500 MG in D5W 110 ML IV ONE (09:30)
[2018-06-25] MEDS ORDERED: LORazepam Inj 2mg/ml 1ml IV ONE (09:30)
[2018-06-25 09:41] LABS: BASOPHILS % (AUTO) 2.3 % (0.0-2.0); EOSINOPHILS % (AUTO) 0.3 % (0.0-3.0); HEMATOCRIT 38.2 % (42.0-52.0); HEMOGLOBIN 12.2 G/DL (14.2-18.0); MEAN CORPUSCULAR VOLUME 94 FL (80-99); MONOCYTES % (AUTO) 10.6 % (1.0-10.0); NEUTROPHILS % (AUTO) 55.8 % (45.0-75.0); PLATELET COUNT 227 K/UL (150-450); RED BLOOD COUNT 4.07 M/UL (4.70-6.10); RED CELL DISTRIBUTION WIDTH 13.3 % (11.6-14.8)
--- NOTE | 2018-06-25 09:45 | NUR ---
ED Nurse Note: Pt is now on NC 2L/min, O2 sat of 97%. No s/s of distress. Pt sent down for CT head via [facility].
--- NOTE | 2018-06-25 10:00 | NUR ---
ED Nurse Note: pt is back from CT, remains stable.
[2018-06-25 10:01] LABS: ANION GAP 20 mmol/L (5-15); BLOOD UREA NITROGEN 10 mg/dL (7-18); CARBON DIOXIDE 19 MMOL/L (21-32); CHLORIDE 101 MMOL/L (98-107); POTASSIUM 4.1 MMOL/L (3.5-5.1); SODIUM 140 MMOL/L (136-145)
[2018-06-25 10:07] LABS: ALANINE AMINOTRANSFERASE 34 U/L (12-78); ALBUMIN 3.5 G/DL (3.4-5.0); ALBUMIN/GLOBULIN RATIO 0.6 (1.0-2.7); ALKALINE PHOSPHATASE 105 U/L (46-116); ASPARTATE AMINO TRANSFERASE 58 U/L (15-37); BILIRUBIN,TOTAL 0.4 MG/DL (0.2-1.0); CREATINE KINASE 433 U/L (26-308)
--- NOTE | 2018-06-25 10:20 | Diagnostic Imaging Report ---
EXAM: CT Head Without Intravenous Contrast CLINICAL HISTORY: SZ TECHNIQUE: Axial computed tomography images of the head/brain without intravenous contrast. CTDI is 70.38 mGy and DLP is 1741 mGy-cm. One or more of the following dose reduction techniques were used: automated exposure control, adjustment of the mA and/or kV according to patient size, use of iterative reconstruction technique. COMPARISON: CT head 10/25/17 FINDINGS: No intracranial hemorrhage, abnormal intra- or extra-axial collections or parenchymal lesions are seen. There are involutional changes with prominence of the sulci, basal cisterns and ventricles. Scattered white matter hypoattenuations are present, likely from small vessel disease. 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 Old left basal ganglia lacunar infarcts The russo-white differentiation is preserved. No evidence of mass effect, midline shift, or edema. No acute osseous injury. Right supraorbital hardware intact. Mild right maxillary sinus chronic mucosal thickening. Mastoid air cells are clear. Old nasal bone fracture. IMPRESSION: 1. No acute intracranial process. 2. Involutional changes with small vessel disease. 3. 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
--- NOTE | 2018-06-25 11:19 | Diagnostic Imaging Report ---
EXAM: XR Chest, 1 View CLINICAL HISTORY: SZ TECHNIQUE: Frontal view of the chest. COMPARISON: No relevant prior studies available. FINDINGS: Lungs: Rotated film. Unremarkable. No consolidation. Pleural space: Unremarkable. No pneumothorax. Heart: Unremarkable. No cardiomegaly. Mediastinum: Unremarkable. Bones/joints: Right lateral rib 6 age-indeterminate fracture. IMPRESSION: Right lateral rib 6 age-indeterminate fracture. Lungs clear.
[2018-06-25 11:58] VITALS: BP 150/98
[2018-06-25] MEDS ORDERED: Tetanus/Diptheria/Pertussis Vaccine 0.5ml Syr IM ONE (12:45)
--- NOTE | 2018-06-25 13:07 | NUR ---
ED Nurse Note: Pt is sleeping in bed, A/Ox3. No s/s of distress.
[2018-06-25] MEDS ORDERED: ceFAZolin 2gm/50ml Premix 50 ML IVPB ONE (14:15)
--- NOTE | 2018-06-25 14:29 | Diagnostic Imaging Report ---
EXAM: XR Left Forearm, 2 Views CLINICAL HISTORY: TRAUMA TECHNIQUE: Frontal and lateral views of the left forearm. COMPARISON: No relevant prior studies available. FINDINGS: Bones/joints: Comminuted displaced distal radial fracture extending to the articular surface of the radiocarpal joint. Slightly displaced ulnar styloid fracture. No dislocation. Soft tissues: Diffuse soft tissue swelling. IMPRESSION: 1. Comminuted displaced distal radial fracture extending to the articular surface of the radiocarpal joint. 2. Slightly displaced ulnar styloid fracture.
--- NOTE | 2018-06-25 15:03 | Emergency Room Report ---
History of Present Illness General Chief Complaint: Seizure Source: Patient, EMS Present Illness HPI Patient presents after having a witnessed generalized tonic-clonic seizure. Addition he's complaining about some pain and swelling in his left forearm. Patient is postictal and unable to give much history. He does admit to drinking alcohol. Paramedics noted that there was some oral trauma. It's unknown whether there is any other trauma about the head. Seen multiple visits for acute alcohol intoxication. Admitted here 04/11 for seizure. D/C dx: 1. Alcohol intoxication. 2. Delirium tremens. 3. Substance abuse. Allergies: Coded Allergies: MORPHINE (Verified Allergy, Unknown, 04/09/17) Patient History Limited by: medical condition Past Medical History: see triage record, old chart reviewed Social History: Reports: smoking, alcohol use, drug use Social History Narrative on the streets Reviewed Nursing Documentation: PMH: Agreed; PSxH: Agreed Nursing Documentation-PM Past Medical History: No Stated History Hx Cardiac Problems: No - HIV, Hep C Hx Hypertension: Yes Hx Diabetes: Yes Hx Epilepsy: Yes Review of Systems All Other Systems: limited Physical Exam Vital Signs Date Time Temp Pulse Resp B/P (MAP) Pulse Ox O2 Delivery O2 Flow Rate FiO2 06/25/18 09:11 98.1 104 16 156/81 99 Room Air Sp02 EP Interpretation: reviewed, normal General Appearance: no apparent distress, other - Disheveled, Postictal Head: normocephalic Eyes: bilateral eye PERRL, bilateral eye EOMI, bilateral eye Scleral Injection ENT: moist mucus membranes, other - Lingual macerations no lacerations, old nasal fracture with deformity Neck: supple, no bony tend Respiratory: chest non-tender, lungs clear, normal breath sounds Cardiovascular #1: regular rate, rhythm Cardiovascular #2: 2+ radial (R), 2+ radial (L) - . 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 Position good. Vascular with good capillary fill. Decreased sensation due to hematoma block. Medical Decision Making Diagnostic Impression: Primary Impression: Seizure Additional Impressions: Substance abuse Forearm fracture Qualified Codes: S52.92XA - Unspecified fracture of left forearm, initial encounter for closed fracture Alcohol abuse ER Course Patient presents after a witnessed seizure. Differential includes seizure disorder, alcohol withdrawal, and head injury with bleed amongst others including electrolyte imbalance. Evaluation will be with EKG, CT the head, chest x-ray. In addition he has pain in his left forearm and this needs to be evaluated for possible fracture. The patient will be treated with Ativan and Keppra. Seized in Xray. Ativan given. Keppra given. EKG with ST. CXR no infiltrates. Tox + for amphetamines and + BAL. Slightly elevated CK. CT no bleed or lesions. Fx of forearm. Alert and OX3, but not remember if prior seizure. (See review of medical records.) Hematoma block. Reduced wrist and splint applied. Post reduction films with excellent reduction. Concern about possible compartment syndrome and instability of d/c with seizures and fx. Needs ortho evaluation. No evidence of alcohol withdrawal. Discussed with Dr. Amaya. Patient improved and stable for transfer. Laboratory Tests Test 06/25/18 09:30 White Blood Count 5.0 K/UL (4.8-10.8) Red Blood Count 4.07 M/UL (4.70-6.10) L Hemoglobin 12.2 G/DL (14.2-18.0) L Hematocrit 38.2 % (42.0-52.0) L Mean Corpuscular Volume 94 FL (80-99) Mean Corpuscular Hemoglobin 30.0 PG (27.0-31.0) Mean Corpuscular Hemoglobin Concent 32.0 G/DL (32.0-36.0) Red Cell Distribution Width 13.3 % (11.6-14.8) Platelet Count 227 K/UL (150-450) Mean Platelet Volume 6.7 FL (6.5-10.1) Neutrophils (%) (Auto) 55.8 % (45.0-75.0) Lymphocytes (%) (Auto) 31.0 % (20.0-45.0) Monocytes (%) (Auto) 10.6 % (1.0-10.0) H Eosinophils (%) (Auto) 0.3 % (0.0-3.0) Basophils (%) (Auto) 2.3 % (0.0-2.0) H Sodium Level 140 MMOL/L (136-145) Potassium Level 4.1 MMOL/L (3.5-5.1) Chloride Level 101 MMOL/L (98-107) Carbon Dioxide Level 19 MMOL/L (21-32) L Anion Gap 20 mmol/L (5-15) H Blood Urea Nitrogen 10 mg/dL (7-18) Creatinine 1.0 MG/DL (0.55-1.30) Estimate Glomerular Filtration Rate > 60 mL/min (>60) Glucose Level 115 MG/DL (74-106) H Calcium Level 9.0 MG/DL (8.5-10.1) Total Bilirubin 0.4 MG/DL (0.2-1.0) Aspartate Amino Transferase (AST) 58 U/L (15-37) H Alanine Aminotransferase (ALT) 34 U/L (12-78) Alkaline Phosphatase 105 U/L (46-116) Total Creatine Kinase 433 U/L (26-308) H Troponin I 0.017 ng/mL (0.000-0.056) Total Protein 9.3 G/DL (6.4-8.2) H Albumin 3.5 G/DL (3.4-5.0) Globulin 5.8 g/dL Albumin/Globulin Ratio 0.6 (1.0-2.7) L Urine Opiates Screen Negative (NEGATIVE) Acetaminophen Level < 2 MCG/ML (10-30) L Urine Barbiturates Screen Negative (NEGATIVE) Phenytoin (Dilantin) Level < 0.5 ug/mL (10-20) L Valproic Acid Level 4 MCG/ML (50-100) L Phencyclidine (PCP) Screen Negative (NEGATIVE) Urine Amphetamines Screen Positive (NEGATIVE) H Phenobarbital Level < 1.0 ug/mL (15-40) L Urine Benzodiazepines Screen Negative (NEGATIVE) Urine Cocaine Screen Negative (NEGATIVE) Urine Marijuana (THC) Screen Positive (NEGATIVE) H Serum Alcohol 15 mg/dL EKG Diagnostic Results Rate: tachycardiac Rhythm: NSR ST Segments: no acute changes Rhythm Strip Diag. Results EP Interpretation: yes Rhythm: no PVC's, no ectopy, other - Sinus tachycardia Chest X-Ray Diagnostic Results Chest X-Ray Diagnostic Results : Chest X-Ray Ordered: Yes # of Views/Limited/Complete: 1 View Indication: Other EP Interpretation: Yes Interpretation: no consolidation, no effusion, no pneumothorax, other - Both fracture ribs Impression: Other Electronically Signed by: Electronically signed by Harshil Rao MD Other X-Ray Diagnostic Results Other X-Ray Diagnostic Results #1: X-Ray ordered: Forearm # of Views/Limited Vs Complete: 2 View Indication: Pain EP Interpretation: Yes Interpretation: other - Fracture, dislocation and soft tissue swelling Impression: Other Electronically Signed by: Electronically signed by Harshil Rao MD Other X-Ray Diagnostic Results #2: X-Ray ordered: forearm post reduction # of Views/Limited Vs Complete: 2 View Indication: Other EP Interpretation: Yes Interpretation: other - STS, Fx, improved alignment Impression: Other Electronically Signed by: Electronically signed by Harshil Rao MD CT/MRI/US Diagnostic Results CT/MRI/US Diagnostic Results : Imaging Test Ordered: Head Impression involution and old infarcts Last Vital Signs Date Time Temp Pulse Resp B/P (MAP) Pulse Ox O2 Delivery O2 Flow Rate FiO2 06/25/18 17:16 98.1 92 19 134/87 97 Room Air Status: improved Disposition: XFER SHT-TRM HOSP Condition: Serious Referrals: [facility],REFERR[facility] (PCP) Harshil Rao MD Jun 25, 2018 15:03
--- NOTE | 2018-06-25 16:00 | NUR ---
Applied a Volar Splint to Pt Left hand,Sling was put on for support.
--- NOTE | 2018-06-25 16:12 | Diagnostic Imaging Report ---
EXAM: XR Left Wrist Complete, 3 or More Views CLINICAL HISTORY: POST-OP TECHNIQUE: Frontal, lateral and oblique views of the left wrist. COMPARISON: wrist x-ray 06/25/18 1325 FINDINGS: Bones/joints: Comminuted fracture distal radius extending to articular surface, mostly reduced. Ulnar styloid fracture reduced. No dislocation. Soft tissues: Soft tissue swelling. No radiopaque foreign body. Other findings: Interval placement of overlying cast. IMPRESSION: 1. Comminuted fracture distal radius extending to articular surface, mostly reduced. 2. Ulnar styloid fracture reduced.
--- NOTE | 2018-06-25 16:34 | NUR ---
ED Nurse Note: Pt made aware of the transfer- [facility]. Splint applied by ERMD after reduction on left wrist.
[2018-06-25 17:14] VITALS: BP 134/87
--- NOTE | 2018-06-25 17:14 | NUR ---
ED Nurse Note: telephone report given to JOSE MIGUEL Hanley from [facility]. [facility] ambulance at the bedside, report given to JOE Landry. Pt will be transferring to #[id number]. All belongings given to EMT. A/Ox3. No s/s of distress.
[2018-06-25 17:16] VITALS: BP 134/87
--- NOTE | 2018-06-25 17:22 | NUR ---
ED Nurse Note: Pt left with the ambulance. No s/s of distress. All belongings taken by pt.
--- NOTE | 2018-06-28 19:14 | Cardiology Report ---
APPROVED REPORT EKG Measurement Heart [id number] Sinus tachycardia Otherwise normal ECG
== END 2018-06-25 17:23 | disposition short-term general hospital (02) ==
LOC: EDBD 09:16 → EMR 09:40
DX: S52.92XA Unspecified fracture of left forearm, initial encounter for closed fracture (principal); G40.909 Epilepsy, unspecified, not intractable, without status epilepticus; Z23 Encounter for immunization; F17.200 Nicotine dependence, unspecified, uncomplicated; Z88.6 Allergy status to analgesic agent; B20 Human immunodeficiency virus [HIV] disease; B19.20 Unspecified viral hepatitis C without hepatic coma; E11.9 Type 2 diabetes mellitus without complications; I10 Essential (primary) hypertension; F19.10 Other psychoactive substance abuse, uncomplicated; F10.10 Alcohol abuse, uncomplicated; X58.XXXA Exposure to other specified factors, initial encounter; Y92.9 Unspecified place or not applicable
CPT/HCPCS: 25999; 36415; 70450; 71045; 73090; 73100; 80053; 80164; 80184; 80185; 80307; 80329; 82550; 84484; 85025; 90471; 90715; 93005; 96361; 96365; 96375; 99285; J0690; J1953; J7040; Z7502

== ENCOUNTER 2018-12-29 23:31 | Emergency (ER) | payer MEDICAID ==
[~2018-12-29] VITALS: Ht 165.1 cm; Wt 63.5 kg
[2018-12-29] MEDS ORDERED: LORazepam Inj 2mg/ml 1ml IV ONE (23:45)
--- NOTE | 2018-12-29 23:45 | NUR ---
ED Nurse Note: RECIEVED PT BIBA FROM STREETS WITH C/O SUBSTANCE ABUSE, PT WAS GIVEN NARCAN IN THE FIELD WITH VERY LITTLE RESPONSE, PT IS LYING IN BED VERY LETHARGIC, AROUSES TO TACTILE STIMULI, DENIES CP OR ANY PAIN, PT FALLS BACK TO DEEP SLEEP, PT IS VERY DIRTY AND DISCHEVELED IN APPEARANCE, PT IS INCONTINENT OF URINE AND STOOL, PT HAS EJ IN LEFT NECK, PLACED BY PRESS OPERATOR MEAT COLLATOR, SITE ASSESSED AND INTACT AND PATENT, PT PLACED ON CARDIAC MONITORING, WILL RESUME CARE ORDERED AND CLOSELY MONITOR.
[2018-12-30 00:17] LABS: BASOPHILS % (AUTO) 1.2 % (0.0-2.0); EOSINOPHILS % (AUTO) 0.5 % (0.0-3.0); HEMATOCRIT 48.3 % (42.0-52.0); HEMOGLOBIN 15.4 G/DL (14.2-18.0); LYMPHOCYTES % (AUTO) 20.3 % (20.0-45.0); MEAN CORPUSCULAR VOLUME 101 FL (80-99); MONOCYTES % (AUTO) 3.7 % (1.0-10.0); NEUTROPHILS % (AUTO) 74.3 % (45.0-75.0); PLATELET COUNT 285 K/UL (150-450); RED BLOOD COUNT 4.77 M/UL (4.70-6.10); RED CELL DISTRIBUTION WIDTH 12.7 % (11.6-14.8); WHITE BLOOD COUNT 14.1 K/UL (4.8-10.8)
[2018-12-30 00:29] LABS: ANION GAP 23 mmol/L (5-15); BLOOD UREA NITROGEN 6 mg/dL (7-18); CALCIUM 8.8 MG/DL (8.5-10.1); CARBON DIOXIDE 21 MMOL/L (21-32); CHLORIDE 99 MMOL/L (98-107); CREATININE 1.4 MG/DL (0.55-1.30); POTASSIUM 3.5 MMOL/L (3.5-5.1); SODIUM 142 MMOL/L (136-145)
--- NOTE | 2018-12-30 00:39 | Emergency Room Report ---
History of Present Illness General Chief Complaint: Substance Abuse Source: EMS (Charmaine Barros DO) Present Illness HPI Patient presents with paramedics for reports of possible heroin overdose Patient was found unresponsive bystanders apparently performed CPR upon arrival of the paramedics patient was given repeat doses of Narcan and Became more responsive and alert Patient here makes eye contact is awake however not comprehensible with speech there was no reports of trauma at the scene Patient's medical records are being reviewed and patient has had previous presentations (Charmaine Barros DO) Allergies: Coded Allergies: MORPHINE (Verified Allergy, Unknown, 04/09/17) UNABLE TO ASSESS (Unverified , 12/29/18) ams Patient History Limited by: medical condition Reviewed Nursing Documentation: PMH: Agreed; PSxH: Agreed (Charmaine Barros DO) Nursing Documentation-PMH Past Medical History Deferred: Pt Cognitively Impaired Hx Cardiac Problems: No - HIV, Hep C Hx Hypertension: Yes Hx Diabetes: Yes Hx Epilepsy: Yes (Charmaine Barros DO) Review of Systems All Other Systems: limited - Other than the ones mentioned in the history of present illness all others are reviewed however they do stay limited due to the patient's mental status (Charmaine Barros DO) Physical Exam Vital Signs Date Time Temp Pulse Resp B/P (MAP) Pulse Ox O2 Delivery O2 Flow Rate FiO2 12/29/18 23:28 98.8 102 20 122/96 (105) 98 Room Air Sp02 EP Interpretation: reviewed, normal General Appearance: no apparent distress Head: normocephalic, atraumatic Eyes: bilateral eye PERRL, bilateral eye EOMI ENT: hearing grossly normal, normal pharynx Neck: supple Respiratory: lungs clear, no respiratory distress, no retraction Cardiovascular #1: regular rate, rhythm Gastrointestinal: non tender, soft Musculoskeletal: other - Patient does not follow all commands well however does localize towards stimuli Neurologic: responsive - Incomprehensible speech Skin: no rash - However appears disheveled Lymphatic: no adenopathy (Charmaine Barros DO) Medical Decision Making Homeless Attestation I, The treating physician Dr. Barnett, have assessed and agrees that patient is medically stable for discharge to an outpatient disposition. (Kong Barnett MD) Diagnostic Impression: Primary Impression: Substance abuse Additional Impression: Alcohol dependence Qualified Codes: F10.29 - Alcohol dependence with unspecified alcohol-induced disorder Labs Test 12/29/18 23:59 White Blood Count 14.1 K/UL (4.8-10.8) Red Blood Count 4.77 M/UL (4.70-6.10) Hemoglobin 15.4 G/DL (14.2-18.0) Hematocrit 48.3 % (42.0-52.0) Mean Corpuscular Volume 101 FL (80-99) Mean Corpuscular Hemoglobin 32.2 PG (27.0-31.0) Mean Corpuscular Hemoglobin Concent 31.8 G/DL (32.0-36.0) Red Cell Distribution Width 12.7 % (11.6-14.8) Platelet Count 285 K/UL (150-450) Mean Platelet Volume 7.3 FL (6.5-10.1) Neutrophils (%) (Auto) 74.3 % (45.0-75.0) Lymphocytes (%) (Auto) 20.3 % (20.0-45.0) Monocytes (%) (Auto) 3.7 % (1.0-10.0) Eosinophils (%) (Auto) 0.5 % (0.0-3.0) Basophils (%) (Auto) 1.2 % (0.0-2.0) Sodium Level 142 MMOL/L (136-145) Potassium Level 3.5 MMOL/L (3.5-5.1) Chloride Level 99 MMOL/L (98-107) Carbon Dioxide Level 21 MMOL/L (21-32) Anion Gap 23 mmol/L (5-15) Blood Urea Nitrogen 6 mg/dL (7-18) Creatinine 1.4 MG/DL (0.55-1.30) Estimat Glomerular Filtration Rate 52.2 mL/min (>60) Glucose Level 138 MG/DL (74-106) Calcium Level 8.8 MG/DL (8.5-10.1) (Charmaine Barros DO) ER Course Hospital Course 58-year-old M presents to ED with altered mental status. reported heroin overdose patient visually seen and evaluated by Dr. Barros; see his note for full history and physical Clinical course Observed on awake overnight monitor. Stable vitals. Protecting airway. Patient is now awake alert oriented times 3 in the morning. States that he is somewhat tremulous and is going through alcohol withdrawal. Last drink was yesterday. No signs of DTs. Given Ativan/Librium. Will discharge. Homeless checklist completed. i. I feel this is a highly complex case requiring extensive working including EKG/Rhythm strip, Xray/CT/US, Blood/urine lab work, repeat exams while in ED, and administration of strong opiates/narcotics for pain control, admission to hospital or close patient follow up. Diagnosis - substance abuse, alcohol dependence Stable and discharged to home with Rx Librium. Followup with PMD. Return to ED if symptoms recur or worsen Labs Test 12/29/18 23:59 White Blood Count 14.1 K/UL (4.8-10.8) Red Blood Count 4.77 M/UL (4.70-6.10) Hemoglobin 15.4 G/DL (14.2-18.0) Hematocrit 48.3 % (42.0-52.0) Mean Corpuscular Volume 101 FL (80-99) Mean Corpuscular Hemoglobin 32.2 PG (27.0-31.0) Mean Corpuscular Hemoglobin Concent 31.8 G/DL (32.0-36.0) Red Cell Distribution Width 12.7 % (11.6-14.8) Platelet Count 285 K/UL (150-450) Mean Platelet Volume 7.3 FL (6.5-10.1) Neutrophils (%) (Auto) 74.3 % (45.0-75.0) Lymphocytes (%) (Auto) 20.3 % (20.0-45.0) Monocytes (%) (Auto) 3.7 % (1.0-10.0) Eosinophils (%) (Auto) 0.5 % (0.0-3.0) Basophils (%) (Auto) 1.2 % (0.0-2.0) Sodium Level 142 MMOL/L (136-145) Potassium Level 3.5 MMOL/L (3.5-5.1) Chloride Level 99 MMOL/L (98-107) Carbon Dioxide Level 21 MMOL/L (21-32) Anion Gap 23 mmol/L (5-15) Blood Urea Nitrogen 6 mg/dL (7-18) Creatinine 1.4 MG/DL (0.55-1.30) Estimat Glomerular Filtration Rate 52.2 mL/min (>60) Glucose Level 138 MG/DL (74-106) Calcium Level 8.8 MG/DL (8.5-10.1) (Kong Barnett MD) Rhythm Strip Diag. Results EP Interpretation: yes Rate: 77 Rhythm: NSR, no PVC's, no ectopy (Charmaine Barros DO) Last Vital Signs Date Time Temp Pulse Resp B/P (MAP) Pulse Ox O2 Delivery O2 Flow Rate FiO2 12/29/18 23:28 98.8 102 20 122/96 (105) 98 Room Air (Charmaine Barros DO) Status: improved (Kong Barnett MD) Disposition: HOME, SELF-CARE Condition: Stable Scripts Chlordiazepoxide (Chlordiazepoxide HCl) 25 Mg Capsule 25 MG ORAL THREE TIMES A DAY, #15 CAP 0 Refills Prov: Kong Barnett MD 12/30/18 Referrals: [facility],REFERR[facility] (PCP) Charmaine Barros DO Dec 30, 2018 00:39 Kong Barntet MD Dec 30, 2018 08:54
[2018-12-30 01:00] VITALS: BP 111/64
--- NOTE | 2018-12-30 01:30 | NUR ---
ED Nurse Note: PT CONTINUES TO SLEEP WITH LITTLE ANUP RESPONSE, V/S STABLE, NO SOB OR LABORED BREATHING, PT REMAINS ON CONTINUOUS CARDIAC MONITORING, IV FLUIDS INFUSING ORDERED, NO ACUTE CHANGES NOTED, WILL CONTINUE TO CLOSELY MONITOR.
--- NOTE | 2018-12-30 03:15 | NUR ---
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
--- NOTE | 2018-12-30 07:10 | NUR ---
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 safety precautions in place.
[2018-12-30 07:30] VITALS: BP 119/69
--- NOTE | 2018-12-30 08:40 | NUR ---
ED Nurse Note: pt now awake and following commands and asking questions, pt req something to drink. pt states he is homeless and states he has place to go but req [facility] list and rehab facilites for future reference. noted pt with tremors, pt states he drinks everyday. ERMD notified regarding pt's condition. will follow up with further order. verified w/ ermd regarding pt drinking fluids, pt given water and tolerated well.
[2018-12-30] MEDS ORDERED: LIBRIUM25 MG ORAL (08:42)
[2018-12-30 08:45] VITALS: BP 120/68
[2018-12-30] MEDS ORDERED: LORazepam Inj 2mg/ml 1ml IV ONE (08:45)
[2018-12-30] MEDS ORDERED: chlordiazePOXIDE 25mg Cap ORAL ONE (08:45)
[2018-12-30 09:20] VITALS: BP 118/98
--- NOTE | 2018-12-30 09:20 | NUR ---
ED Nurse Note: pt cleared to be d/c per ermd, pt discharge and aftercare instruction provided w/ prescription, pt informed the medication can be picked up from the [place] [facility], pt verbalized he will pick it up after discharge, first librium dose was given in the ED. pt education done regarding substance abuse and advised to stop drinking and do not take librium and alcohol together if patient is plan to drink after discharge, pt advised to follow up with pcp or return to ed if changes in condition, pt iv d/c and id band removed, food and weather appropriate clothing was provided, homeless minicog was signed. pt verbalized understanding, pt left w/ all belongings with pt. pt vss, ambulates w/ steady gait.
== END 2018-12-30 09:20 | disposition home or self-care (01) ==
LOC: EDBD 23:31 → EMR 23:45
DX: F10.29 Alcohol dependence with unspecified alcohol-induced disorder (principal); F11.10 Opioid abuse, uncomplicated; I10 Essential (primary) hypertension; E11.9 Type 2 diabetes mellitus without complications; G40.909 Epilepsy, unspecified, not intractable, without status epilepticus; B20 Human immunodeficiency virus [HIV] disease; B19.20 Unspecified viral hepatitis C without hepatic coma; Z88.6 Allergy status to analgesic agent
CPT/HCPCS: 36415; 80048; 85025; 96361; 96374; Z7502; 99284

== ENCOUNTER 2019-01-04 20:26 | Emergency (ER) | payer MEDICAID ==
[~2019-01-04] VITALS: Ht 180.3 cm; Wt 81.6 kg
[~2019-01-04 20:26] MED LIST changes: +LIBRIUM25 MG ORAL
--- NOTE | 2019-01-04 20:44 | Emergency Room Report ---
History of Present Illness General Chief Complaint: Pain Source: Patient Present Illness HPI 58-year-old male presents with acute alcohol intoxication and abrasions of the right leg, patient was brought in by EMS because he was found on [address] [place], patient states he just needs a place to stay for a little bit, and wants resources to know where he can spend the night, he endorses some achy pain of the abrasions but otherwise no fever no chills patient presents for evaluation Allergies: Coded Allergies: MORPHINE (Verified Allergy, Unknown, 04/09/17) Patient History Limited by: medical condition - Currently intoxicated Past Medical History: see triage record Social History: Reports: alcohol use Reviewed Nursing Documentation: PMH: Agreed; PSxH: Agreed Nursing Documentation-PMH Past Medical History: No History, Except For Hx Cardiac Problems: No - HIV, Hep C Hx Hypertension: Yes Hx Diabetes: Yes Hx Epilepsy: Yes Review of Systems All Other Systems: limited - Currently intoxicated Physical Exam Vital Signs Date Time Temp Pulse Resp B/P (MAP) Pulse Ox O2 Delivery O2 Flow Rate FiO2 01/04/19 20:34 97.5 70 14 101/80 (87) 97 Room Air General Appearance: well appearing, no apparent distress Head: normocephalic, atraumatic ENT: hearing grossly normal, normal voice Neck: full range of motion, supple Respiratory: no respiratory distress, speaking full sentences Musculoskeletal: other - Right lower externally: Abrasions on the right leg, no evidence of infection no erythema Neurologic: alert, normal gait Psychiatric: mood/affect normal Skin: no rash Medical Decision Making Diagnostic Impression: Primary Impression: Acute alcoholic intoxication Qualified Codes: F10.920 - Alcohol use, unspecified with intoxication, uncomplicated Additional Impression: Abrasion ER Course 58-year-old male presents with acute alcohol intoxication, homeless resources were provided to the patient, patient was allowed to sober in the ED, Bacitracin was provided Patient sobered dispo home w/ return precautions Last Vital Signs Date Time Temp Pulse Resp B/P (MAP) Pulse Ox O2 Delivery O2 Flow Rate FiO2 01/04/19 20:34 97.5 70 14 101/80 (87) 97 Room Air Disposition: HOME, SELF-CARE Condition: Stable Referrals: [facility] Patient Instructions: Alcohol Intoxication, [id number] Additional Instructions: The patient was provided with discharge instructions, notified to follow-up with a primary care doctor and or specialist in the next 24-48 hours, and to return to the ED if they have worsening of their symptoms. Please note that this report is being documented using [employer] technology. This can lead to erroneous entry secondary to incorrect interpretation by the dictating instrument. Kenji Giraldo MD Jan 04, 2019 20:44
--- NOTE | 2019-01-04 20:57 | NUR ---
ED Nurse Note: pt brought in by [facility] from [facility] c/c right leg pain and also intoxicated. pt reports he drank today. cms intact will cont monitor.
[2019-01-04 20:58] VITALS: BP 101/80
[2019-01-04] MEDS ORDERED: Bacitracin Oint 15gm Tube TOPIC ONE (21:00)
[2019-01-04] MEDS ORDERED: chlordiazePOXIDE 25mg Cap ORAL ONE (21:15)
--- NOTE | 2019-01-05 05:00 | NUR ---
ED Nurse Note:/ pt cleared to be d/c per ermd, pt discharge paperwork given but pt refused, pt refused to do the minicog, pt refused group home list and clinic list. pt was given ointment and advised to put in on the wound area. pt given sandwich and juice. pt left w/ all belongings.
== END 2019-01-05 05:28 | disposition home or self-care (01) ==
LOC: EDBD 20:26 → EMR 21:27
DX: F10.129 Alcohol abuse with intoxication, unspecified (principal); S80.811A Abrasion, right lower leg, initial encounter; X58.XXXA Exposure to other specified factors, initial encounter; Y92.9 Unspecified place or not applicable; E11.9 Type 2 diabetes mellitus without complications; I10 Essential (primary) hypertension; G40.909 Epilepsy, unspecified, not intractable, without status epilepticus; B20 Human immunodeficiency virus [HIV] disease; B19.20 Unspecified viral hepatitis C without hepatic coma; Z88.6 Allergy status to analgesic agent; Z59.0 Homelessness
CPT/HCPCS: 99282

== ENCOUNTER 2019-01-08 18:23 | Emergency (ER) | payer MEDICAID ==
[~2019-01-08] VITALS: Ht 170.2 cm; Wt 68.0 kg
--- NOTE | 2019-01-08 18:42 | NUR ---
ED Nurse Note: Pt BIBA from the street due to ETOH. Pt was found laying on the ground, bypasser called 911. Pt inappropriate in answering questions at this time. No visible wound found on patient. No complaint of nausea/vomiting. BS 119 upon arrival. Vital signs stable at this time.
[2019-01-08 18:57] VITALS: BP 117/67
--- NOTE | 2019-01-08 19:00 | NUR ---
HAND-OFF: Report given to JOSE MIGUEL Akhtar.
--- NOTE | 2019-01-08 19:10 | NUR ---
ED Nurse Note: Got report from Lynda Mi RN. Patient agitated, skreaming out loud inappropriate words, VSS at this time.
[2019-01-08 19:17] LABS: APPEARANCE,URINE CLEAR; BILIRUBIN, URINE NEGATIVE (NEGATIVE); COLOR,URINE PALE YELLOW; GLUCOSE, URINE (UA) NEGATIVE (NEGATIVE); KETONES,URINE NEGATIVE (NEGATIVE); LEUKOCYTE ESTERASE ,URINE NEGATIVE (NEGATIVE); NITRITE,URINE NEGATIVE (NEGATIVE); PH,URINE 5 (4.5-8.0); PROTEIN,URINE NEGATIVE (NEGATIVE); UROBILINOGEN,URINE NORMAL MG/DL (0.0-1.0)
[2019-01-08 19:20] LABS: ANION GAP 11 mmol/L (5-15); BLOOD UREA NITROGEN 6 mg/dL (7-18); CALCIUM 8.1 MG/DL (8.5-10.1); CARBON DIOXIDE 27 MMOL/L (21-32); CHLORIDE 104 MMOL/L (98-107); CREATININE 0.8 MG/DL (0.55-1.30); POTASSIUM 3.9 MMOL/L (3.5-5.1); SODIUM 142 MMOL/L (136-145)
[2019-01-08 19:25] LABS: ALANINE AMINOTRANSFERASE 82 U/L (12-78); ALBUMIN 2.9 G/DL (3.4-5.0); ALBUMIN/GLOBULIN RATIO 0.6 (1.0-2.7); ALKALINE PHOSPHATASE 119 U/L (46-116); ASPARTATE AMINO TRANSFERASE 104 U/L (15-37); BILIRUBIN,TOTAL 0.4 MG/DL (0.2-1.0); CREATINE KINASE 110 U/L (26-308)
[2019-01-08 19:31] LABS: HEMATOCRIT 39.2 % (42.0-52.0); HEMOGLOBIN 13.1 G/DL (14.2-18.0); MEAN CORPUSCULAR VOLUME 98 FL (80-99); PLATELET COUNT 183 K/UL (150-450); RED BLOOD COUNT 4.02 M/UL (4.70-6.10); RED CELL DISTRIBUTION WIDTH 11.8 % (11.6-14.8); WHITE BLOOD COUNT 6.1 K/UL (4.8-10.8)
--- NOTE | 2019-01-08 19:56 | Emergency Room Report ---
History of Present Illness General Chief Complaint: Alcohol Intoxication Source: EMS (Harshil Rao MD) Present Illness HPI Paramedics were called by claudia colon's. Patient was acting erratic. Allegedly he has been drinking alcohol. Unknown whether or other drugs were ingested. The patient is refusing to answer questions and further review of systems is not possible at this time. No evidence of head trauma. Patient was admitted in April for a seizure. No seizure activity noted today. (Harshil Rao MD) Allergies: Coded Allergies: MORPHINE (Verified Allergy, Unknown, 04/09/17) Patient History Limited by: medical condition Past Medical History: see triage record, old chart reviewed Social History: Reports: alcohol use, drug use Social History Narrative In the past the patient has needed at [facility] discharged Reviewed Nursing Documentation: PMH: Agreed; PSxH: Agreed (Harshil Rao MD) Nursing Documentation-PMH Past Medical History: No History, Except For Hx Cardiac Problems: No - HIV, Hep C Hx Hypertension: Yes Hx Diabetes: Yes Hx Epilepsy: Yes (Harshil Rao MD) Review of Systems All Other Systems: limited (Harshil Rao MD) Physical Exam Vital Signs Date Time Temp Pulse Resp B/P (MAP) Pulse Ox O2 Delivery O2 Flow Rate FiO2 01/08/19 18:23 97.2 93 18 109/76 (87) 100 Room Air Sp02 EP Interpretation: reviewed, normal General Appearance: alert, other - Agitated verbally abusive and combative Head: normocephalic, atraumatic Eyes: bilateral eye PERRL, bilateral eye Scleral Injection ENT: moist mucus membranes Neck: supple Respiratory: lungs clear, normal breath sounds Cardiovascular #1: regular rate, rhythm Cardiovascular #2: 2+ radial (R) Gastrointestinal: normal inspection, non tender, non-distended, decreased bowel sounds Musculoskeletal: back normal, normal range of motion Neurologic: responsive, motor strength/tone normal, DTRs symmetric, sensory intact, other - Not responding appropriately to external stimuli Psychiatric: other - Agitated and not responding to external stimuli Skin: warm/dry, abrasion - Old (Harshil Rao MD) Medical Decision Making Medical: Alcohol Abuse Reaction to Intervention: No change Restraint Reassesment I, Harshil Rao MD, have personally evaluated this patient. Laboratory tests have been reviewed and addressed accordingly. The patient is deemed to present a danger to themselves and/or others. This is based on the exam, history ( provided by EMS) and observed or reported behavior. Attempts for non-invasive measures have been considered and/or attempted, however, have been futile. It is in the best interest of the nursing staff, the patient, and others involved in this patient's care that behavioral restraints be applied. Patient evaluation reveals the following: Combative, verbally abusive and not responding to attempts at de-escalation or following commands. (Harshil Rao MD) Diagnostic Impression: Primary Impression: Substance abuse Additional Impression: Acute alcoholic intoxication Qualified Codes: F10.920 - Alcohol use, unspecified with intoxication, uncomplicated ER Course Patient presents with agitation and possible alcohol ingestion. Patient is combative and refusing to cooperate. Restraints and sedation are indicated. Differential includes alcohol intoxication, substance abuse, electrolyte imbalance, amongst others. Is a nonfocal neurologic exam and CT the head is not indicated at this time. Evaluation with EKG, chest x-ray, labs. Initial evaluation not possible because of agitation and combativeness. Sedation ordered. EKG sinus rhythm with nonspecific ST-T wave changes. Patient refusing x- ray.CBC and CMP unremarkable. Blood alcohol elevated. Tox screen positive for THC. Blood alcohol 429. sedated and restraints d/c. Patient still not conversant and unable to obtain further history. Needing reevaluation when sober. Signed out to Dr. Yeboah Laboratory Tests Test 01/08/19 18:55 White Blood Count 6.1 K/UL (4.8-10.8) Red Blood Count 4.02 M/UL (4.70-6.10) L Hemoglobin 13.1 G/DL (14.2-18.0) L Hematocrit 39.2 % (42.0-52.0) L Mean Corpuscular Volume 98 FL (80-99) Mean Corpuscular Hemoglobin 32.6 PG (27.0-31.0) H Mean Corpuscular Hemoglobin Concent 33.4 G/DL (32.0-36.0) Red Cell Distribution Width 11.8 % (11.6-14.8) Platelet Count 183 K/UL (150-450) Mean Platelet Volume 7.7 FL (6.5-10.1) Neutrophils (%) (Auto) % (45.0-75.0) Lymphocytes (%) (Auto) % (20.0-45.0) Monocytes (%) (Auto) % (1.0-10.0) Eosinophils (%) (Auto) % (0.0-3.0) Basophils (%) (Auto) % (0.0-2.0) Differential Total Cells Counted 100 Neutrophils % (Manual) 34 % (45-75) L Lymphocytes % (Manual) 50 % (20-45) H Monocytes % (Manual) 10 % (1-10) Eosinophils % (Manual) 3 % (0-3) Basophils % (Manual) 1 % (0-2) Band Neutrophils 2 % (0-8) Platelet Estimate Adequate Platelet Morphology Normal Red Blood Cell Morphology Normal Urine Color Pale yellow Urine Appearance Clear Urine pH 5 (4.5-8.0) Urine Specific [place] 1.015 (1.005-1.035) Urine Protein Negative (NEGATIVE) Urine Glucose (UA) Negative (NEGATIVE) Urine Ketones Negative (NEGATIVE) Urine Blood Negative (NEGATIVE) Urine Nitrite Negative (NEGATIVE) Urine Bilirubin Negative (NEGATIVE) Urine Urobilinogen Normal MG/DL (0.0-1.0) Urine Leukocyte Esterase Negative (NEGATIVE) Sodium Level 142 MMOL/L (136-145) Potassium Level 3.9 MMOL/L (3.5-5.1) Chloride Level 104 MMOL/L (98-107) Carbon Dioxide Level 27 MMOL/L (21-32) Anion Gap 11 mmol/L (5-15) Blood Urea Nitrogen 6 mg/dL (7-18) L Creatinine 0.8 MG/DL (0.55-1.30) Estimate Glomerular Filtration Rate > 60 mL/min (>60) Glucose Level 119 MG/DL (74-106) H Calcium Level 8.1 MG/DL (8.5-10.1) L Total Bilirubin 0.4 MG/DL (0.2-1.0) Aspartate Amino Transferase (AST) 104 U/L (15-37) H Alanine Aminotransferase (ALT) 82 U/L (12-78) H Alkaline Phosphatase 119 U/L (46-116) H Total Creatine Kinase 110 U/L (26-308) Troponin I 0.000 ng/mL (0.000-0.056) Total Protein 8.1 G/DL (6.4-8.2) Albumin 2.9 G/DL (3.4-5.0) L Globulin 5.2 g/dL Albumin/Globulin Ratio 0.6 (1.0-2.7) L Salicylates Level 1.4 ug/mL (2.8-20) L Urine Opiates Screen Negative (NEGATIVE) Acetaminophen Level < 2 MCG/ML (10-30) L Urine Barbiturates Screen Negative (NEGATIVE) Phencyclidine (PCP) Screen Negative (NEGATIVE) Urine Amphetamines Screen Negative (NEGATIVE) Urine Benzodiazepines Screen Positive (NEGATIVE) H Urine Cocaine Screen Negative (NEGATIVE) Urine Marijuana (THC) Screen Positive (NEGATIVE) H Serum Alcohol 429 mg/dL (Harshil Rao MD) ER Course Patient presents with alcohol intoxication. He was signed out to me. He has to be sedated because of combativeness. He slept for several hours. Now slowly waking up. Will observe until clinical sobriety and discharge in the morning. (Guerrero Yeboah MD) EKG Diagnostic Results Rate: normal Rhythm: NSR ST Segments: no acute changes - NSTTW changes (Harshil Rao MD) Rhythm Strip Diag. Results EP Interpretation: yes Rhythm: NSR, no PVC's, no ectopy (Harshil Rao MD) Last Vital Signs Date Time Temp Pulse Resp B/P (MAP) Pulse Ox O2 Delivery O2 Flow Rate FiO2 01/08/19 20:57 97.2 84 16 115/68 99 Room Air Status: improved - Sedated (Harshil Rao MD) Status: improved (Guerrero Yeboah MD) Disposition: HOME, SELF-CARE Condition: Stable Patient Instructions: Alcohol Intoxication, [id number] Additional Instructions: abstain from drugs and alcohol. Follow-up with your doctor in 7 days. Return if worse. Harshil Rao MD Jan 08, 2019 19:56 Guerrero Yeboah MD Jan 09, 2019 01:43
[2019-01-08 19:57] VITALS: BP 120/76
--- NOTE | 2019-01-08 19:57 | NUR ---
ED Nurse Note: Patient become more agitated,anxious, started jumped out of the bed, pushing everything around. Patient was placed in non behavioral restrains, 2 point. Will continue to monitor.
[2019-01-08] MEDS ORDERED: Haloperidol 5mg/ml Inj IM ONE (20:00)
[2019-01-08] MEDS ORDERED: DiphenhydrAMINE 50mg/ml Inj IM ONE (20:00)
[2019-01-08 20:57] VITALS: BP 115/68
--- NOTE | 2019-01-08 20:57 | NUR ---
ED Nurse Note: Patient still in non behavioral restrains 2 point. VSS at this time.
--- NOTE | 2019-01-08 21:21 | NUR ---
ED Nurse Note: Patient's restrains were DC. Patient is calm, cooperative, VSS at this time.
[2019-01-09 01:57] VITALS: BP 120/70
--- NOTE | 2019-01-09 02:35 | NUR ---
ED Nurse Note: Patient is in the bed, sleeping. VSS at this time, no acute disstress noticed.
[2019-01-09 05:19] VITALS: BP 120/70
--- NOTE | 2019-01-09 05:20 | NUR ---
ED Nurse Note: Pt cleared by health care Provider for discharge. DC instructions/prescription was given and explained to pt and verbalized understanding of teachings. All medical deviecs such as ID band removed. Pt is AAO x4, ambulatory and left with all personal belongings.
--- NOTE | 2019-01-12 21:13 | Cardiology Report ---
APPROVED REPORT EKG Measurement Heart [id number] Normal sinus rhythm Septal infarct, age undetermined Abnormal ECG
== END 2019-01-09 05:21 | disposition home or self-care (01) ==
LOC: EDBD 18:23 → EMR 18:59
DX: F10.920 Alcohol use, unspecified with intoxication, uncomplicated (principal); F13.10 Sedative, hypnotic or anxiolytic abuse, uncomplicated; F12.10 Cannabis abuse, uncomplicated; Y90.8 Blood alcohol level of 240 mg/100 ml or more; R45.1 Restlessness and agitation; Z78.1 Physical restraint status; B20 Human immunodeficiency virus [HIV] disease; B19.20 Unspecified viral hepatitis C without hepatic coma; I10 Essential (primary) hypertension; E11.9 Type 2 diabetes mellitus without complications; G40.909 Epilepsy, unspecified, not intractable, without status epilepticus; Z88.6 Allergy status to analgesic agent
CPT/HCPCS: 36415; 80053; 80196; 80307; 80329; 81003; 82550; 84484; 85007; 85025; 93005; 96360; 96361; 96372; J1200; J1630; Z7502; 99284

== ENCOUNTER 2019-05-24 16:09 | Emergency (ER) | payer MEDICAID ==
[~2019-05-24] VITALS: Ht 172.7 cm; Wt 68.0 kg
--- NOTE | 2019-05-24 17:21 | Emergency Room Report ---
History of Present Illness General Chief Complaint: Alcohol Intoxication Source: EMS Present Illness HPI Patient is a's 58-year-old male brought in by EMS after increased altered mental status. Patient reportedly had been drinking alcohol heavily in the day. Patient had no current complaints. Patient was brought in by EMS due to inability to ambulate initially. prior history of HIV. History is medically limited by patient's poor cooperation. Allergies: Coded Allergies: MORPHINE (Verified Allergy, Unknown, 04/09/17) UNABLE TO ASSESS (Unverified , 05/24/19) PT. IS NOT ANSWERING HIS ALLERGY INFO Patient History Past Medical History: see triage record Reviewed Nursing Documentation: PMH: Agreed; PSxH: Agreed Nursing Documentation-PMH Hx Hypertension: Yes Hx Diabetes: Yes Hx Seizures: Yes Hx Epilepsy: Yes Review of Systems All Other Systems: limited - Limited by poor historian Physical Exam Vital Signs Date Time Temp Pulse Resp B/P (MAP) Pulse Ox O2 Delivery O2 Flow Rate FiO2 05/24/19 15:57 97.9 102 18 132/101 (111) 98 Room Air Sp02 EP Interpretation: reviewed, normal General Appearance: well appearing, no apparent distress, alert, Chronically Ill Head: atraumatic ENT: normal ENT inspection, hearing grossly normal, normal voice Neck: normal inspection, full range of motion, supple, no bony tend Respiratory: normal inspection, lungs clear, normal breath sounds, no respiratory distress, no retraction, no wheezing Cardiovascular #1: regular rate, rhythm, no edema Gastrointestinal: normal inspection, normal bowel sounds, non tender, soft, no guarding, no hernia Genitourinary: no CVA tenderness Musculoskeletal: normal inspection, back normal, normal range of motion Neurologic: alert, responsive, normal inspection, other - Slurred speech, ataxia Psychiatric: normal inspection, mood/affect normal Skin: no rash Medical Decision Making Diagnostic Impression: Primary Impression: Alcohol abuse ER Course Patient presented for altered mental status. Differential diagnosis included but was not limited to ischemic stroke, alcohol intoxication, hypoglycemia, seizure, among others. Patient was noted to have initially altered mental status. This appears alcohol related. Patient had gradual improvement of confusion. By the time of discharge the patient was alert and ambulatory without assistance and had a good plan for self care. Patient is stable for discharge from emergency Department. Patient was advised to stop drinking alcohol and to followup with outpatient therapy for alcohol treatment. Last Vital Signs Date Time Temp Pulse Resp B/P (MAP) Pulse Ox O2 Delivery O2 Flow Rate FiO2 05/24/19 15:57 97.9 102 18 132/101 (111) 98 Room Air Josh Radford MD May 24, 2019 17:21
[2019-05-24 17:25] VITALS: BP 132/101
--- NOTE | 2019-05-24 17:25 | NUR ---
ED Nurse Note: Pt brought in from the street by [facility] [address] for etoh intoxication. Per EMS, bystanders called 911. Upon [facility] arrival on scene, pt had finished 18 pack of beer next to him. Pt blood sugar was 214 on scene. Pt is awake and alert x2-3 at this time. Will continue to monitor.
--- NOTE | 2019-05-24 17:35 | NUR ---
ED Nurse Note: Pt states "as soon as I leave here I am going to get a liter of vodka".
--- NOTE | 2019-05-24 19:10 | NUR ---
HAND-OFF: Report given to JOSE MIGUEL Castellanos.
--- NOTE | 2019-05-24 19:16 | NUR ---
ED Nurse Note: Received report from JOSE MIGUEL Lucia. Patient resting in bed, no acute distress noted.
--- NOTE | 2019-05-24 19:26 | NUR ---
HAND-OFF: Report given to JOSE MIGUEL Lucia. Patient moved to [facility] OB room.
--- NOTE | 2019-05-24 19:30 | NUR ---
ED Nurse Note: Pt moved to OB room. Report received from JOSE MIGUEL Castellanos. Pt is ambulatory with steady gait. Pt is asking to leave at this time. Pt plan is to go up the street, refuses to disclose address.
[2019-05-24 19:50] VITALS: BP 129/85
--- NOTE | 2019-05-24 19:50 | NUR ---
ER DISCHARGE NOTE: Patient is cleared to be discharged per ERMD, pt is aox4, on room air, with stable vital signs. pt was given dc instructions, pt was able to verbalize understanding, pt id band removed. pt is able to ambulate with steady gait. pt took all belongings. pt refused to disclose information regarding plan upon discharge. pt wearing appropriate weather clothes. nourishment provided.
== END 2019-05-25 03:35 | disposition home or self-care (01) ==
LOC: EDBD 16:09 → EMR 16:34
DX: F10.10 Alcohol abuse, uncomplicated (principal); Y90.8 Blood alcohol level of 240 mg/100 ml or more; I10 Essential (primary) hypertension; E11.9 Type 2 diabetes mellitus without complications; G40.909 Epilepsy, unspecified, not intractable, without status epilepticus; Z88.5 Allergy status to narcotic agent; Z21 Asymptomatic human immunodeficiency virus [HIV] infection status
CPT/HCPCS: 99281

== ENCOUNTER 2020-02-07 10:56 | Emergency (ER) | payer MEDICAID ==
[~2020-02-07] VITALS: Ht 172.7 cm; Wt 68.0 kg
[2020-02-07 11:00] VITALS: BP 148/95
[2020-02-07] MEDS ORDERED: Thiamine 100mg tab ORAL ONE (11:00)
[2020-02-07] MEDS ORDERED: chlordiazePOXIDE 25mg Cap ORAL ONE (11:00)
[2020-02-07] MEDS ORDERED: chlordiazePOXIDE 25mg Cap ONE (11:21)
--- NOTE | 2020-02-07 11:21 | Emergency Room Report ---
History of Present Illness General Chief Complaint: Alcohol Intoxication Source: Patient (Kenji Giraldo MD) Present Illness HPI 59-year-old male history of alcohol abuse presents with acute intoxication patient was [place] in [address] [employer] patient was sleeping, his intoxication is aggravated by alcohol use alleviated by not utilizing alcohol severity is moderate, constant, patient presents for evaluation and treatment (Kenji Giraldo MD) Allergies: Coded Allergies: MORPHINE (Verified Allergy, Unknown, 04/09/17) No Known Allergies (Unverified , 02/07/20) UNABLE TO ASSESS (Unverified , 05/24/19) PT. IS NOT ANSWERING HIS ALLERGY INFO COVID-19 Screening Contact w/high risk pt: No Experienced COVID-19 symptoms?: No COVID-19 Testing performed PROJ ENGINEER: No (Kenji Giraldo MD) Patient History Past Medical History: see triage record Social History: Reports: alcohol use Reviewed Nursing Documentation: PMH: Agreed; PSxH: Agreed (Kenji Giraldo MD) Nursing Documentation-PMH Past Medical History: No Stated History Hx Cardiac Problems: No - HIV, Hep C Hx Hypertension: Yes Hx Diabetes: Yes Hx Seizures: Yes Hx Epilepsy: Yes (Kenji Giraldo MD) Review of Systems All Other Systems: negative except mentioned in HPI (Kenji Giraldo MD) Physical Exam Vital Signs Date Time Temp Pulse Resp B/P (MAP) Pulse Ox O2 Delivery O2 Flow Rate FiO2 02/07/20 10:52 97.0 100 16 154/100 (118) 100 Room Air General Appearance: well appearing, no apparent distress Head: normocephalic, atraumatic ENT: hearing grossly normal, normal voice Neck: full range of motion, supple Respiratory: no respiratory distress, speaking full sentences Musculoskeletal: gait/station normal Neurologic: alert, normal gait Psychiatric: mood/affect normal Skin: no rash (Kenji Giraldo MD) Medical Decision Making Homeless Attestation I, The treating physician Dr. Giraldo, have assessed and agrees that patient is medically stable for discharge to an outpatient disposition. (Kenji Giraldo MD) Homeless Attestation I have evaluated the patient and deemed him stable for discharge at this time. (Mo Garcia M.D.) Diagnostic Impression: Primary Impression: Acute alcoholic intoxication Qualified Codes: F10.920 - Alcohol use, unspecified with intoxication, uncomplicated ER Course 59-year-old male history of alcohol use presents with acute alcohol intoxication, patient states he only wants a sandwich, will provide patient with sandwich, Librium, will watch patient until sobriety disposition home with return precautions (Kenji Giraldo MD) ER Course Patient observed on my shift. After 8 hours of observation patient alert, oriented, ambulatory with a steady gait without signs of intoxication, stable for discharge. (Mo Garcia M.D.) Last Vital Signs Date Time Temp Pulse Resp B/P (MAP) Pulse Ox O2 Delivery O2 Flow Rate FiO2 02/07/20 10:52 97.0 100 16 154/100 (118) 100 Room Air (Kenji Giraldo MD) Disposition: HOME, SELF-CARE Condition: Stable Referrals: [facility] Patient Instructions: Alcohol Use Disorder Additional Instructions: The patient was provided with discharge instructions, notified to follow-up with a primary care doctor and or specialist in the next 24-48 hours, and to return to the ED if they have worsening of their symptoms. Please note that this report is being documented using [employer] technology. This can lead to erroneous entry secondary to incorrect interpretation by the dictating instrument. Kenji Giraldo MD Feb 07, 2020 11:21 Mo Garcia M.D. Feb 07, 2020 19:34
[2020-02-07] MEDS ORDERED: Thiamine 100mg tab ONE (11:22)
[2020-02-07 13:00] VITALS: BP 142/89
[2020-02-07 15:00] VITALS: BP 149/82
[2020-02-07 17:00] VITALS: BP 144/78
[2020-02-07 19:52] VITALS: BP 134/82
== END 2020-02-07 19:52 | disposition home or self-care (01) ==
LOC: EDBD 10:56 → EMR 12:00
DX: F10.129 Alcohol abuse with intoxication, unspecified (principal); B20 Human immunodeficiency virus [HIV] disease; Z86.19 Personal history of other infectious and parasitic diseases; E11.9 Type 2 diabetes mellitus without complications; G40.909 Epilepsy, unspecified, not intractable, without status epilepticus
CPT/HCPCS: 99282